=== PATIENT | female | born 1995 | race Caucasian/White ===

== ENCOUNTER 2025-07-17 17:06 | Emergency (ER) | payer MEDICAID, SELFPAY ==
[2025-07-17 17:24] VITALS: BP 123/81; PULSE 76; RESP 18; TEMP 37.1; O2SAT 99; BMI 42.1
--- NOTE | 2025-07-17 17:28 | XR_ITS ---
Examination: Pelvic ultrasound, transabdominal, complete Technique: Transabdominal ultrasound of the pelvis performed using grayscale imaging Date and time of exam: July 10, 2025, 1833 hrs. Indications: Onset right lower abdominal pelvic pain today Findings: Uterus 6.5 cm endometrial stripe 0.9 cm No uterine mass or intrauterine gestation Right ovary 3.0 cm arterial flow. Left ovary 2.6 cm arterial flow Impression: Negative study
--- NOTE | 2025-07-17 17:28 | XR_ITS ---
Examination: Abdomen sonogram, Limited Date and time of exam: July 17, 2025, 1826 hrs. Indications: Right lower abdominal pain onset today Technique: Real-time mota scale transabdominal sonographic images of the abdomen obtained. Findings: No sonographic visualization appendix, no free fluid Impression: No sonographic visualization appendix
--- NOTE | 2025-07-17 17:29 | PD.EDRME ---
Rapid Medical Screening Exam RME Arrival date/time: 07/17/25 17:06 30-year-old female with no known medical history presents to the emergency room with a chief complaint of right lower abdominal and pelvic pain x 1 day I have greeted and performed a focused initial assessment of this patient. A comprehensive ED assessment and evaluation of the patient, analysis of all test results, and completion of the medical decision making process will be conducted by additional ED providers. Chief Complaint: Abdominal Pain Vital signs: Vital Signs Temperature 98.8 F 07/17/25 17:24 Pulse Rate 76 07/17/25 17:24 Respiratory Rate 18 07/17/25 17:24 Blood Pressure 123/81 07/17/25 17:24 Pulse Oximetry (%) 99 07/17/25 17:24 Oxygen Delivery Method Room Air 07/17/25 17:24 Vital signs reviewed by provider: Yes
[2025-07-17 17:44] LABS: Basophils # (Auto) 0.0 Thou/mm3 (0.0-0.2); Basophils % (Auto) 0 % (0-2.5); Eosinophils # (Auto) 0.1 Thou/mm3 (0.0-0.5); Eosinophils % (Auto) 1 % (0-10); Hematocrit 38.6 % (36.0-46.0); Hemoglobin 12.3 g/dL (12.0-16.0); Immature Granulocytes Auto 0.03 Thou/mm3 (0.00-0.00); Lymphocytes # (Auto) 3.5 Thou/mm3 (1.0-4.8); Lymphocytes % (Auto) 31 % (10-50); Mean Corpuscular HGB Conc 31.9 g/dl (31.0-37.0); Mean Corpuscular Hemoglobin 23.9 pg (25.0-35.0); Mean Corpuscular Volume 75 fL (80-100); Monocytes # (Auto) 0.6 Thou/mm3 (0.0-0.8); Monocytes % (Auto) 5 % (0-12); Neutrophils # (Auto) 7.1 Thou/mm3 (1.8-7.7); Neutrophils % (Auto) 63 % (37-80); Nucleated Red Blood Cell # 0.00 Thou/mm3 (0.00-0.00); Nucleated Red Blood Cell % 0 /100 WBC (0); Platelet Count 281 Thou/mm3 (140-440); RDW Standard Deviation 44.0 fL (36.4-46.3); Red Blood Count 5.15 Miln/mm3 (4.00-5.20); White Blood Count 11.4 Thou/mm3 (3.6-11.0)
[2025-07-17 18:03] LABS: Collection Type, Urine Clean Catch
[2025-07-17 18:09] LABS: Bilirubin,Urine Negative (Negative); Blood,Urine Negative (Negative); Clarity,Urine Clear (Clear/Hazy); Color,Urine Lt-Yellow (Lt Yel-Yel); Glucose, Urine Negative (Negative); Ketones,Urine Negative (Negative); Leukocyte Esterase,Urine Negative (Negative); Nitrite,Urine Negative (Negative); PH,Urine 6.5 (5.0-7.0); Protein,Urine 1+ (Neg - Trace); RBC,Urine 4 /hpf (0-3); Specific Gravity,Urine 1.024 (1.001-1.035); Squamous Epithelial Cell,Urine 6 /hpf (0-5); Urobilinogen,Urine Negative mg/dL (0.0-1.0); WBC,Urine 1 /hpf (0-5)
[2025-07-17 18:20] LABS: HCG Qualitative,Urine Negative
[2025-07-17 18:21] LABS: Alanine Aminotransferase 8 U/L (10-49); Albumin, Serum 4.7 gm/dL (3.5-5.0); Albumin/Globulin Ratio 1.7 (1.2-2.2); Alkaline Phosphatase 68 U/L (46-116); Anion Gap 8 (7-16); Aspartate Amino Transferase 11 U/L (0-34); BUN/Creatinine Ratio 9 Ratio (12-20); Bilirubin,Total 0.4 mg/dL (0.3-1.2); Blood Urea Nitrogen 8 mg/dL (9-23); Calcium 9.6 mg/dL (8.3-10.6); Calcium (Corrected) 9.6 mg/dL (8.5-10.1); Carbon Dioxide 28.3 mMol/L (20.0-31.0); Chloride 105 mMol/L (98-107); Creatinine (Component) 0.9 mg/dL (0.6-1.3); Estimated Creatinine Clearance 124.9 mL/min (>60); Globulin 2.7 gm/dL (2.3-3.5); Glucose 87 mg/dL (74-106); Lipase 25 U/L (12-53); Osmolality,Calculated 278 (275-295); Potassium 4.0 mMol/L (3.4-5.1); Sodium 141 mMol/L (136-145); Total Protein 7.4 gm/dL (5.7-8.2); eGFR > 60 See Note
[2025-07-17 20:00] VITALS: BP 126/97; PULSE 77; RESP 16; TEMP 36.8; O2SAT 100
--- NOTE | 2025-07-17 20:13 | EDNOTE_ITS ---
ED Abdominal Pain RME/HPI General Chief Complaint: Abdominal Pain Stated complaint: RLQ ABD PAIN, DIZZY Time seen by provider: 07/17/25 20:14 Arrival date/time: 07/17/25 17:06 RME / HPI RME / HPI narrative: 07/17/25 17:06 30-year-old female with no known medical history presents to the emergency room with a chief complaint of right lower abdominal and pelvic pain x 1 day I have greeted and performed a focused initial assessment of this patient. A comprehensive ED assessment and evaluation of the patient, analysis of all test results, and completion of the medical decision making process will be conducted by additional ED providers. Dr. Brower?s Main ED Evaluation: 30yo female with no significant past medical history presents to the ED for a chief complaint of RLQ/right pelvic pain for the last 1-2 days. No radiation or migration. Patient states her pain has been persistent. Patient denies any nausea, vomiting, fever, chills, or any other associated symptoms. NKDA. Related Data Home Medications ?Medication ?Instructions ?Recorded ?Confirmed ferrous sulfate 325 mg (65 mg 325 mg PO BID 07/17/20 1 iron) tablet vits no.124-ferrous fum 1 tab PO QDAY 0 07/18/20 27 mg iron-folic acid 800 mcg tablet ( Vitamin) Previous Rx's ?Medication ?Instructions ?Recorded hydrocodone 5 mg-acetaminophen 325 1 tab PO Q6H PRN pa in, moderate 07/24/20 mg tablet (Benedict) #30 tabs docusate sodium 100 mg capsule 100 mg PO BID #60 caps 07/26/20 (Colace) Allergies Allergy/AdvReac Type Severity Reaction Status Date / Time latex Allergy Mild Rash Verified 07/17/25 17:10 Review of Systems Review of Systems Systems Reviewed: All systems reviewed, normal except as documented Past Medical History Past Medical History NEUROLOGIC: Negative Seizures CARDIAC: Negative Congestive Heart Failure RESPIRATORY: Negative Chronic Obstructive Pulmonary Disease (COPD) GASTROINTESTINAL: Positive Gall Bladder Disease GENITOURINARY: Negative Renal Disease REPRODUCTIVE: Positive Previous Pregnancies (x1) ENDOCRINE: Negative Diabetes Mellitus Type 1 or Diabetes Mellitus Type 2 HEMATOLOGIC: Positive Anemia OTHER HISTORY: Negative Blood Transfusions, Blood Transfusion Reaction or Anesthesia Reactions Family History FAMILY HISTORY: Positive Family Psychiatric Problems (sister self mutilation and depression), Family Respiratory Disorders (mother) and Family Cardiac Disorders (HTM MGM and MGF) Surgical History SURGICAL: Negative Section Social History SMOKING STATUS: Never smoker SECOND HAND EXPOSURE: No ED Exam Narrative Physical exam: Generally patient is alert and in no obvious distress, heart regular rate and rhythm, lungs clear to auscultation equal bilaterally, abdomen soft bowel sounds present nondistended minimal tenderness just below McBurney's point, negative Rovsing sign, external pelvic exam showed the patient have tenderness over the right adnexa without rebound., Musculoskeletal exam showed no costovertebral angle tenderness Course Quality Measures none Orders Category Date Time Status US abdomen limited Stat Exams 07/17/25 17:28 Completed US pelvic complete Stat Exams 07/17/25 17:28 Completed CBC Stat Lab 07/17/25 17:32 Completed CMP [Comprehensive Metabolic Panel] Stat Lab 07/17/25 17:32 Completed HCG Qualitative,Urine Stat Lab 07/17/25 17:55 Completed Lipase Stat Lab 07/17/25 17:32 Completed UA [Urinalysis] Stat Lab 07/17/25 17:55 Completed Urine Culture Stat Lab 07/17/25 17:55 Received Vital Signs Vital signs: Vital Signs Temperature 98.8 F 07/17/25 17:24 Pulse Rate 76 07/17/25 17:24 Respiratory Rate 18 07/17/25 17:24 Blood Pressure 123/81 07/17/25 17:24 Pulse Oximetry (%) 99 07/17/25 17:24 Oxygen Delivery Method Room Air 07/17/25 17:24 Abdominal Pain MDM MDM Narrative MDM Narrative:: Scribe Attestation: 07/17/25 - Twila Chilel, luis m scribing for and in the presence of Dr. Brower. I interpreted all labs. There is no leukocytosis. No fever. Pelvic ultrasound was unremarkable. Abdominal ultrasound did not visualize the appendix. This was ordered prior to my evaluation. LFTs were normal. Kidney function was normal. Urine was not infected. was negative. Through shared decision making I do long discussion with the patient. She wishes to go home. She will return if condition worsens. She was told that this could still be appendicitis. She understands that and wishes to go home and will return if condition worsens. Differential diagnosis: Appendicitis, ovarian cyst, uterine fibroid, mittelschmerz Patient data External records reviewed:: [facility] previous records (Per chart review, patient has no previous ED visits.) Clinical information provided by:: patient Social determinants that could affect healthcare access:: none Patient has the following chronic illnesses:: none How is presenting disease/condition affected by chronic disease/condition?: no chronic disease Evaluation data The following diagnostics were reviewed and interpreted by me:: lab results and radiology exam(s) Lab and/or radiology exams considered but not ordered:: none Interpretation Summary: [facility] Report Signed Patient: DEBO CHRISTIANSON [facility]. Record#: [id number] Birthdate: 1995 Age/Sex: 30 / F Location: [facility] Attending Dr: Ordering Physician: Vern Hong Date of Service: 07/17/25 Procedure(s): US pelvic complete Accession Number(s): [id number] cc: Vern Hong; Arvind Kearney MD; NO PRIMARY/FAMILY,PHYSICIAN~ Examination: Pelvic ultrasound, transabdominal, complete Technique: Transabdominal ultrasound of the pelvis performed using grayscale imaging Date and time of exam: July 10, 2025, 1833 hrs. Indications: Onset right lower abdominal pelvic pain today Findings: Uterus 6.5 cm endometrial stripe 0.9 cm No uterine mass or intrauterine gestation Right ovary 3.0 cm arterial flow. Left ovary 2.6 cm arterial flow Impression: Negative study Dictated By: Arvind Kearney MD Signed By: <Electronically signed by Arvind Kearney MD in OV> 07/17/251931 [facility] Signed Patient: DEBO CHRISTIANSON [facility]. Record#: [id number] Birthdate: 1995 Age/Sex: 30 / F Location: [facility] Attending Dr: Ordering Physician: Vern Hong Date of Service: 07/17/25 Procedure(s): US abdomen limited Accession Number(s): [id number] cc: Vern Hong JOB [employer]TER; Arvind Kearney MD; NO P RIMARY/FAMILY,PHYSICIAN~ Examination: Abdomen sonogram, Limited Date and time of exam: July 17, 2025, 1826 hrs. Indications: Right lower abdominal pain onset today Technique: Real-time mota scale transabdominal sonographic images of the abdomen obtained. Findings: No sonographic visualization appendix, no free fluid Impression: No sonographic visualization appendix Dictated By: Arvind Kearney MD Signed By: <Electronically signed by Arvind Kearney MD in OV> 07/17/25 1856 Medications / Prescriptions Medications or Prescriptions considered but not ordered:: none Medication administrations:: see above, if any Consultations Consultation(s) initiated? (list below): No Diagnosis Differential diagnosis abdominal pain: other (See MDM.) Most likely diagnosis given after review of the tests above:: see clinical impression below Admission Indicated Admission indicated?: not indicated Admission Request Was there a request for admission?: No Disposition Plan Disposition Plan: Discharge Discharge Attestation Discharge Attestation: The patient and all family members were given an opportunity to ask questions and understood the discharge instructions. Discharge instructions specifically effects, indications for sooner follow up or return to the emergency department, and the expected course of current diagnosis. Patient condition: Stable Discharge Plan Plan Patient Disposition: HOME (Self Care) Prescriptions/Referrals Prescriptions/Med Rec: No Action ferrous sulfate 325 mg (65 mg iron) Tablet 325 mg PO BID Vitamin 27 mg iron- 800 mcg Tablet 1 tab PO QDAY hydrocodone-acetaminophen [Benedict] 5-325 mg tablet 1 tab PO Q6H MDD 4 PRN (Reason: pain, moderate) Qty: 30 0RF docusate sodium [Colace] 100 mg capsule 100 mg PO BID Qty: 60 0RF Referrals: No Primary/Family,Physician [Primary Care Provider] - In 1 week Problem List Clinical Impression: Pelvic pain Impression comment: You may take Tylenol and/or ibuprofen as needed for pain. Return if condition worsens as this still could represent early appendicitis. Patient/Caregiver Discharge Instructions Print Language: Yi Stand Alone Forms: [facility] Award Info., Patient Portal Info Letter
[2025-07-17 20:35] VITALS: BP 130/85; PULSE 85; RESP 14; TEMP 37; O2SAT 99
== END 2025-07-17 20:37 | disposition home or self-care (01) ==
PROVIDERS: Nurse Practitioner Family; Emergency Provider Emergency Medicine
DX: R10.2 Pelvic and perineal pain (principal); R10.31 Right lower quadrant pain
CPT/HCPCS: 36415; 76705; 76856; 80053; 81001; 81025; 83690; 85025; 87086; 99283